=== PATIENT | female | born 1965 | race Hispanic/Latino ===

== ENCOUNTER 2017-11-25 07:14 | Emergency (ER) | payer MEDICAID ==
[2017-11-25 07:20] VITALS: TEMP 97.9
[2017-11-25 07:21] VITALS: BMI 26.6
--- NOTE | 2017-11-25 07:47 | ED PDOC ---
Arrival/HPI - General Chief Complaint: Back Pain Time Seen by Provider: 11/25/17 07:17 Historian: Patient - History of Present Illness Narrative History of Present Illness (Text): 11/25/17 07:30 Janice Thompson is a 52 year old female, whose past medical history includes hypertension, COPD, bipolar disorder, , who presets to the emergency department complaining of right sided musculoskeletal pain since 3 days ago. Patient reports right sided back pain, after lifting disabled boyfriend and when moving him around believes she pulled a muscle. Patient is at times "short of breath" from the pain. No other complaints were made and patient denies direct trauma or fall. 11/25/17 08:43 Time/Duration: < week Symptom Onset: Sudden Symptom Course: Unchanged Activities at Onset: Light Context: Home Past Medical History - Provider Review Nursing Documentation Reviewed: Yes - Infectious Disease Hx of Infectious Diseases: None - Tetanus Immunization Tetanus Immunization: Unknown - Cardiac Hx Angina: Yes Hx Hypertension: Yes - Pulmonary Hx Chronic Obstructive Pulmonary Disease (COPD): Yes - Musculoskeletal/Rheumatological Hx Falls: No Hx Osteoarthritis: Yes - Gastrointestinal Hx Gastroesophageal Reflux: Yes - Psychiatric Hx Bipolar Disorder: Yes Hx Depression: Yes Hx Emotional Abuse: No Hx Physical Abuse: No Hx Substance Use: Yes (socially) - Surgical History Hx Carotid Endarterectomy: Yes Hx Hysterectomy: Yes Other/Comment: ectopic - Anesthesia Hx Anesthesia: Yes Hx Anesthesia Reactions: No - Suicidal Assessment Feels Threatened In Home Enviroment: No Family/Social History - Physician Review Nursing Documentation Reviewed: Yes Family/Social History: Unknown Family HX Smoking Status: Former Smoker Hx Alcohol Use: No Hx Substance Use: Yes (socially) Substance used: marijuana Hx Substance Use Treatment: No Allergies/Home Meds Allergies/Adverse Reactions: Allergies iodine Allergy (Intermediate, Verified 10/01/16 12:07) SWELLING Penicillins Allergy (Intermediate, Verified 10/01/16 12:07) SWELLING Home Medications: Home Meds Medication Instructions Recorded Confirmed ARIPiprazole [Abilify] 5 mg PO DAILY 11/25/17 11/25/17 Atorvastatin [Lipitor] 20 mg PO DAILY 11/25/17 11/25/17 Ranolazine [Ranexa] 1,000 mg PO BID 11/25/17 11/25/17 Topiramate [Topamax] 200 mg PO TID 11/25/17 11/25/17 diaZEpam [Valium] 10 mg PO QID 11/25/17 11/25/17 Review of Systems - Review of Systems Constitutional: absent: Fevers Respiratory: Other (difficulty breathing secondary to pain ) Cardiovascular: absent: Chest Pain Gastrointestinal: absent: Abdominal Pain, Vomiting Genitourinary Female: absent: Dysuria Musculoskeletal: Back Pain (right sided back pain radiates to chest) Skin: absent: Rash Endocrine: absent: Diaphoresis Psychiatric: absent: Anxiety Physical Exam Vital Signs Reviewed: Yes Vital Signs Temp Pulse Resp BP Pulse Ox 11/25/17 09:11 97.9 F 82 16 128/82 98 11/25/17 07:20 97.9 F 70 18 147/77 99 Temperature: Afebrile Blood Pressure: Normal Pulse: Regular Respiratory Rate: Normal Appearance: Positive for: Well-Appearing, Non-Toxic, Comfortable Pain Distress: None Mental Status: Positive for: Alert and Oriented X 3 - Systems Exam Head: Present: Atraumatic, Normocephalic Pupils: Present: PERRL Extroacular Muscles: Present: EOMI Conjunctiva: Present: Normal Neck: Present: Normal Range of Motion Respiratory/Chest: Present: Clear to Auscultation, Good Air Exchange. No: Respiratory Distress, Accessory Muscle Use, Wheezes, Rales, Retracting, Rhonchi Cardiovascular: Present: Regular Rate and Rhythm, Normal S1, S2. No: Murmurs Abdomen: Present: Normal Bowel Sounds. No: Tenderness, Distention, Peritoneal Signs, Rebound, Guarding Back: Present: Paraspinal Tenderness (right sided tenderness) Upper Extremity: Present: Normal Inspection, Normal ROM, NORMAL PULSES, Neurovascularly Intact, Capillary Refill < 2s. No: Cyanosis, Edema, Tenderness , Swelling, Erythema Lower Extremity: Present: Normal Inspection, NORMAL PULSES, Normal ROM, Neurovascularly Intact, Capillary Refill < 2 s. No: Edema, Cyanosis, Tenderness , Swelling, Erythema, Deformity Neurological: Present: GCS=15, CN II-XII Intact, Speech Normal Skin: Present: Warm, Dry, Normal Color. No: Rashes Psychiatric: Present: Alert, Oriented x 3, Normal Insight, Normal Concentration Medical Decision Making ED Course and Treatment: 11/25/17 Impression: 52 year old female with right sided paraspinal tenderness complaining of right sided back pain Differential Diagnosis included but are not limited to: suspect muscle strain, r /o pnuemo Plan: -- Chest X-ray -- Flexeril and Toradol -- Reassess and disposition Progress Notes: 11/25/17 13:50 11/25/17 13:50 pain improved. pt seen on phone i nnad ambulatory steady gait neuro intact lungs clear. - RAD Interpretation Radiology Orders: 11/25/17 07:34 CHEST TWO VIEWS (PA/LAT) [RAD] Stat Permastone Installer: Radiologist - Medication Orders Current Medication Orders: Discontinued Medications Cyclobenzaprine HCl (Flexeril) 10 mg PO STAT STA Stop: 11/25/17 07:35 Last Admin: 11/25/17 07:44 Dose: 10 mg Ketorolac Tromethamine (Toradol) 30 mg IM STAT STA Stop: 11/25/17 07:35 Last Admin: 11/25/17 07:43 Dose: 30 mg MAR Pain Assessment Document 11/25/17 07:43 MS (Rec: 11/25/17 07:44 MS [facility] [place]-[id number]) Pain Reassessment Is this a pain reassessment? No Presence of Pain Presence of Pain Yes Pain Scale Used Pain Scale Used Numeric Location Left, Right or Bilateral Left Upper or Lower Upper Pain Location Body Site Back Description Description Constant Intensity of Pain at present 10 Pain Behavior Moaning Grasping Site Aggravating Factors Changing Position IM Administration Charges Document 11/25/17 07:43 MS (Rec: 11/25/17 07:44 MS [facility] [place]-[id number]) Injection Site MAR Injection Site Right Gluteus Medius Charges for Administration # of IM Administrations 1 - Scribe Statement The provider has reviewed the documentation as recorded by the Shree Bah Provider Scribe Attestation: All medical record entries made by the Scribe were at my direction and personally dictated by me. I have reviewed the chart and agree that the record accurately reflects my personal performance of the history, physical exam, medical decision making, and the department course for this patient. I have also personally directed, reviewed, and agree with the discharge instructions and disposition. Disposition/Present on Arrival - Present on Arrival Any Indicators Present on Arrival: No History of DVT/PE: No History of Uncontrolled Diabetes: No Urinary Catheter: No History of Decub. Ulcer: No History Surgical Site Infection Following: None - Disposition Have Diagnosis and Disposition been Completed?: Yes Diagnosis: Back pain Disposition: HOME/ ROUTINE Disposition Time: 08:44 Condition: STABLE Discharge Instructions (ExitCare): Upper Back Pain Additional Instructions: please follow up with specialist. return to er with worsening symptoms or concerns. Prescriptions: Cyclobenzaprine [Cyclobenzaprine HCl] 10 mg PO DAILY PRN #10 tab PRN Reason: Muscle Spasm Naproxen [Naprosyn] 500 mg PO BID PRN #14 tablet PRN Reason: Pain, Mild (1-3) Referrals: Richard Figueredo MD [Primary Care Provider] - Follow up with primary Visco,Douglas Turcios MD [Staff Provider] - Follow up with primary Forms: Archive ([place])
[2017-11-25 09:13] VITALS: BP 128/82; PULSE 82; RESP 16; O2SAT 98
--- NOTE | 2017-11-25 09:54 | RAD ---
HISTORY: right sided pain COMPARISON: 10/01/2016 TECHNIQUE: Chest PA and lateral FINDINGS: LUNGS: No active pulmonary disease. PLEURA: No significant pleural effusion identified. No pneumothorax apparent. CARDIOVASCULAR: Normal. OSSEOUS STRUCTURES: No significant abnormalities. VISUALIZED UPPER ABDOMEN: Normal. OTHER FINDINGS: None. IMPRESSION: No active disease.
== END 2017-11-25 09:00 | disposition home or self-care (01) ==
LOC: ED 07:14
DX: M54.9 Dorsalgia, unspecified (principal); I10 Essential (primary) hypertension; J44.9 Chronic obstructive pulmonary disease, unspecified; Z87.891 Personal history of nicotine dependence
CPT/HCPCS: 71046; 96372; 99283; J1885